=== PATIENT | female | born 1985 | race Hispanic/Latino ===

== ENCOUNTER 2017-02-28 22:49 | Emergency (ER) | payer OTHER ==
[2017-03-01 00:08] LABS: Basophils % (Auto) 0.7 % (0.0-1.8); Eosinophils % (Auto) 4.8 % (0.0-4.3); Hematocrit 41.8 % (30.3-42.9); Hemoglobin 13.7 gm/dl (10.1-14.3); Mean Corpuscular HGB Conc 33 % (30-34); Mean Corpuscular Hemoglobin 30 pg (28-32); Mean Corpuscular Volume 92 fl (79-97); Platelet Count 268 K/mm3 (140-440); Red Blood Count 4.53 M/mm3 (3.65-5.03); Red Cell Distribution Width 12.5 % (13.2-15.2)
[2017-03-01 00:12] LABS: Anion Gap 19 mmol/L; BUN/Creatinine Ratio 21.66; Blood Urea Nitrogen 13 mg/dL (7-17); Calcium 9.2 mg/dL (8.4-10.2); Carbon Dioxide 27 mmol/L (22-30); Chloride 98.5 mmol/L (98-107); Glucose 90 mg/dL (65-100); Potassium 4.5 mmol/L (3.6-5.0); Sodium 140 mmol/L (137-145)
[2017-03-01 08:25] LABS: Bacteria,Urine 1+ /HPF (Negative); Bilirubin,Urine NEG (Negative); Blood,Urine NEG (Negative); Ketones,Urine NEG (Negative); Leukocyte Esterase,Urine NEG (Negative); Mucus,Urine 2+ /HPF; Nitrite,Urine NEG (Negative); Protein,Urine <15 mg/dL mg/dL (Negative); Urobilinogen,Urine < 2.0 mg/dL (<2.0)
[2017-03-01] MEDS ORDERED: TORADOL IV ONE (09:41)
[2017-03-01] MEDS ORDERED: NACL 0.9% 1000 ML 1,000 ML IV ONE (09:41)
[2017-03-01] MEDS ORDERED: ZOFRAN IV ONE ×2 (09:41→10:52)
--- NOTE | 2017-03-01 09:47 | Emergency Department Report ---
ED Headache HPI - General Chief Complaint: Nausea/Vomiting/Diarrhea Stated Complaint: MIGRAINE, VOMITING, FEVER Time Seen by Provider: 03/01/17 09:33 Source: patient - History of Present Illness Initial Comments: 31 years old female history of chronic headache, she stated that her symptoms started 1 week ago his flu-like symptoms running last cough congestion and then she started her headache migraine which she did not have the medication that the neurologist for trauma and thus why she seek ER attention. Patient describes her headache as similar to the previous headache. Denied any fever no focal neurological deficits no neck stiffness no bowel or bladder dysfunction. Patient also stated that she's been having nausea vomiting and diarrhea. Timing/Duration: 1 week Quality: moderate Head Injury Location: global Recent Head Trauma: no recent headache/trauma, frequent headaches, chronic headaches Modifying Factors: improves with: medication. worse with: cold therapy, exposure to light, immobilization, movement, rest, other Associated Symptoms: nausea/vomiting, nasal congestion, nasal drainage. denies : confusion, fatigue, facial pain, fever/chills, flushing, numbness in legs/feet , seizures, sinus infection, stiff neck, vision changes, weakness Allergies/Adverse Reactions: Allergies amoxicillin Allergy (Verified 02/28/17 23:02) Unknown Penicillins Allergy (Verified 02/28/17 23:02) Unknown Sulfa (Sulfonamide Antibiotics) Allergy (Verified 02/28/17 23:02) Unknown Home Medications: Ambulatory Orders Ondansetron [Zofran Odt] 4 mg PO Q8HR PRN #14 tab.rapdis 03/01/17 traMADol [Ultram] 50 mg PO Q6HR PRN #10 tablet 03/01/17 ED Review of Systems ROS: Stated complaint: MIGRAINE, VOMITING, FEVER Other details as noted in HPI Comment: Unobtainable due to pts medical conditions Constitutional: denies: chills, fever Eyes: denies: vision change ENT: denies: ear pain Respiratory: denies: cough, orthopnea, shortness of breath, SOB with exertion Cardiovascular: denies: chest pain, palpitations, dyspnea on exertion Gastrointestinal: nausea, vomiting, diarrhea Neurological: headache. denies: weakness, numbness, paresthesias, confusion, abnormal gait, vertigo ED Past Medical Hx - Past Medical History Previous Medical History?: Yes Hx Hypertension: Yes Hx Psychiatric Treatment: Yes (anxiety) - Surgical History Past Surgical History?: No Additional Surgical History: leep surgery 2002 - Social History Smoking Status: Never Smoker Substance Use Type: None - Medications Home Medications: Home Medications Medication Instructions Recorded Confirmed Last Taken Type Ondansetron [Zofran Odt] 4 mg PO Q8HR PRN #14 tab.rapdis 03/01/17 Unknown Rx traMADol [Ultram] 50 mg PO Q6HR PRN #10 tablet 03/01/17 Unknown Rx ED Physical Exam - General Limitations: No Limitations General appearance: alert, in no apparent distress - Head Head exam: Present: atraumatic, normocephalic, normal inspection - Eye Eye exam: Present: normal appearance, PERRL, EOMI Pupils: Present: normal accommodation - ENT ENT exam: Present: normal exam - Neck Neck exam: Present: normal inspection - Respiratory Respiratory exam: Present: normal lung sounds bilaterally. Absent: respiratory distress, wheezes, rales, rhonchi, stridor, chest wall tenderness, accessory muscle use, decreased breath sounds, prolonged expiratory - Cardiovascular Cardiovascular Exam: Present: regular rate, normal rhythm, normal heart sounds - GI/Abdominal GI/Abdominal exam: Present: soft, normal bowel sounds. Absent: distended, tenderness, guarding, rebound, rigid, diminished bowel sounds, hyperactive bowel sounds, hypoactive bowel sounds, organomegaly, mass, bruit, pulsatile mass , hernia - Extremities Exam Extremities exam: Present: normal inspection - Back Exam Back exam: Present: normal inspection, full ROM. Absent: tenderness, CVA tenderness (R), CVA tenderness (L), muscle spasm, paraspinal tenderness, vertebral tenderness - Neurological Exam Neurological exam: Present: alert, oriented X3, CN II-XII intact, normal gait. Absent: motor sensory deficit - Skin Skin exam: Present: warm, intact, normal color ED Course Vital Signs 02/28/17 03/01/17 03/01/17 23:02 08:55 10:40 Temperature 97.9 F 98.1 F Pulse Rate 95 H 72 Respiratory 18 16 16 Rate Blood Pressure 116/80 Blood Pressure 107/66 [Left] O2 Sat by Pulse 100 100 100 Oximetry ED Medical Decision Making - Lab Data Result diagrams: 02/28/17 23:38 02/28/17 23:38 Critical care attestation.: If time is entered above; I have spent that time in minutes in the direct care of this critically ill patient, excluding procedure time. ED Disposition Clinical Impression: Headache, URI (upper respiratory infection) Disposition: - TO HOME OR SELFCARE Is pt being admited?: No Condition: Stable Instructions: Migraine Headache (ED) Referrals: PRIMARY CARE,MD [Primary Care Provider] - 3-5 Days
[2017-03-01] MEDS ORDERED: MORPHINE IV ONE ×2 (10:51→10:52)
[2017-03-01 12:42] VITALS: BP 120/91
== END 2017-03-01 12:42 | disposition home or self-care (01) ==
LOC: ED 22:49
DX: G43.909 Migraine, unspecified, not intractable, without status migrainosus (principal); J06.9 Acute upper respiratory infection, unspecified; I10 Essential (primary) hypertension; F41.9 Anxiety disorder, unspecified; Z88.0 Allergy status to penicillin; Z88.2 Allergy status to sulfonamides; Z88.1 Allergy status to other antibiotic agents
CPT/HCPCS: 36415; 80048; 81001; 81025; 82962; 85025; 96361; 96374; 96375; 96376; 99283; J1885; J2270; J2405; J7030